=== PATIENT | female | born 1995 | race Caucasian/White ===

== ENCOUNTER 2021-01-11 16:38 | Inpatient (IN) | payer OTHER ==
[~2021-01-11] VITALS: Ht 154.9 cm; Wt 77.1 kg
[2021-01-11 18:52] LABS: HEMOGLOBIN 10.6 gm/dl (12.3-15.3); RED BLOOD COUNT 3.65 M/UL (4.00-5.10); WHITE BLOOD COUNT 7.9 K/UL (4.5-11.0)
[2021-01-11 19:28] LABS: BUN/CREATININE RATIO 17 (0-10)
[2021-01-12] MEDS ORDERED: IBUPROFEN600 MG PO (19:19)
[2021-01-12] MEDS ORDERED: DOCUSATE SODIU250 MG PO (19:19)
[2021-01-12] MEDS ORDERED: FEROSUL325 MG PO (19:19)
[2021-01-13 02:12] LABS: HEMOGLOBIN 9.5 gm/dl (12.3-15.3)
[2021-01-14] MEDS ORDERED: LABETALOL HCL200 MG PO (12:52)
[2021-01-14] MEDS ORDERED: HYDROCODON-ACE1 EAC4 PO (13:05)
[2021-01-15] MEDS ORDERED: LABETALOL HCL200 MG PO (12:02)
[2021-01-15] MEDS ORDERED: NIFEDIPINE ER30 M1 PO (12:02)
== END 2021-01-15 15:10 | disposition home or self-care (01) | DRG 807 ==
LOC: GENOP 16:38 → OB 17:47
PROVIDERS: Obstetrics & Gynecology; ADMIT Obstetrics & Gynecology
PROC: 10E0XZZ Delivery of Products of Conception, External Approach (ICD-10-PCS; principal; 2021-01-11)
PROC: 0KQM0ZZ Repair Perineum Muscle, Open Approach (ICD-10-PCS; 2021-01-11)
PROC: 10907ZC Drainage of Amniotic Fluid, Therapeutic from Products of Conception, Via Natural or Artificial Opening (ICD-10-PCS; 2021-01-11)
PROC: 3E033VJ Introduction of Other Hormone into Peripheral Vein, Percutaneous Approach (ICD-10-PCS; 2021-01-11)
PROC: 4A1HXCZ Monitoring of Products of Conception, Cardiac Rate, External Approach (ICD-10-PCS; 2021-01-11)
DX: O13.4 Gestational [pregnancy-induced] hypertension without significant proteinuria, complicating childbirth (principal); Z37.0 Single live birth; Z3A.38 38 weeks gestation of pregnancy; O70.1 Second degree perineal laceration during delivery; O99.52 Diseases of the respiratory system complicating childbirth; J45.909 Unspecified asthma, uncomplicated; Z20.822 Contact with and (suspected) exposure to COVID-19
CPT/HCPCS: 36415; 51702; 80053; 81001; 82247; 82248; 82570; 82800; 83615; 83735; 84156; 84550; 85014; 85018; 85025; 85379; 85610; 85730; 90715; J0360; J0610; J2590; J3010; J3475; Q0177; U0002